=== PATIENT | female | born 1955 | race Caucasian/White ===

== ENCOUNTER → 2017-02-16 | Outpatient (CLI) | payer OTHER ==
[~2017-02-16] MED LIST: CYMB60CA; GLUCTAB; LEVO.075; ROPI1TAB72
[2017-02-16 13:02] LABS: AUTOMATED NEUTROPHIL # 4.1 TH/MM3 (1.8-7.7); BASOPHIL % 0.3 % (0.0-2.0); EOSINOPHIL # 0.1 TH/MM3 (0-0.4); EOSINOPHIL % 1.6 % (0.0-4.0); HEMATOCRIT 41.3 % (35.0-46.0); HEMO FLAGS DIFF FINAL; LYMPH % 33.1 % (9.0-44.0); LYMPHOCYTE # 2.4 TH/MM3 (1.0-4.8); MEAN CELL VOLUME 87.1 FL (80.0-100.0); MEAN CORPUSCULAR HGB CONC 33.3 % (32.0-36.0); PLATELET COUNT 212 TH/MM3 (150-450); RED BLOOD COUNT 4.74 MIL/MM3 (4.00-5.30); RED CELL DISTRIBUTION WIDTH 13.9 % (11.6-17.2); WHITE BLOOD COUNT 7.1 TH/MM3 (4.0-11.0)
[2017-02-16 13:34] LABS: ALT (GPT) 179 U/L (10-53); ANION GAP 8 MEQ/L (5-15); AST (GOT) 60 U/L (15-37); BICARBONATE 25.8 MEQ/L (21.0-32.0); BLOOD UREA NITROGEN 17 MG/DL (7-18); CHLORIDE 104 MEQ/L (98-107); GLOMERULAR FILTRATION RATE 84 ML/MIN (>89); POTASSIUM 3.8 MEQ/L (3.5-5.1); SODIUM (NA) 138 MEQ/L (136-145)
[2017-02-16 13:42] LABS: ALKALINE PHOSPHATASE 84 U/L (45-117); FREE T4 1.25 NG/DL (0.76-1.46); HDL CHOLESTEROL 62.6 MG/DL (40.0-60.0); LDL CHOLESTEROL 73 MG/DL (0-99); TOTAL BILIRUBIN ADULT 0.4 MG/DL (0.2-1.0)
== END ==
LOC: ELAB 11:01
PROVIDERS: ATTEND Family Medicine Adolescent Medicine
DX: E03.9 Hypothyroidism, unspecified (principal); E78.4 Other hyperlipidemia; I12.9 Hypertensive chronic kidney disease with stage 1 through stage 4 chronic kidney disease, or unspecified chronic kidney disease; N18.9 Chronic kidney disease, unspecified; E11.22 Type 2 diabetes mellitus with diabetic chronic kidney disease
CPT/HCPCS: 36415; 80050; 80053; 80061; 84439; 84443; 85025

== ENCOUNTER → 2017-11-10 | Outpatient (CLI) | payer OTHER ==
[2017-11-10 12:14] LABS: ALBUMIN 3.7 GM/DL (3.4-5.0); AST (GOT) 35 U/L (15-37); BICARBONATE 28.4 MEQ/L (21.0-32.0); BLOOD UREA NITROGEN 21 MG/DL (7-18); CALCIUM 9.6 MG/DL (8.5-10.1); CHLORIDE 100 MEQ/L (98-107); CHOLESTEROL 161 MG/DL (120-200); CREATININE 0.95 MG/DL (0.50-1.00); GLOMERULAR FILTRATION RATE 60 ML/MIN (>89); GLUCOSE,FASTING 157 MG/DL (74-99); SODIUM (NA) 140 MEQ/L (136-145)
[2017-11-10 12:24] LABS: ALKALINE PHOSPHATASE 89 U/L (45-117); ALT (GPT) 88 U/L (10-53); CHOLESTEROL/ HDL RATIO 2.87 RATIO; DIRECT BILIRUBIN ADULT 0.1 MG/DL (0.0-0.2); FREE T4 1.21 NG/DL (0.76-1.46); LDL CHOLESTEROL 75 MG/DL (0-99); TOTAL BILIRUBIN ADULT 0.5 MG/DL (0.2-1.0); TRIGLYCERIDES 149 MG/DL (42-150)
[2017-11-10 19:30] LABS: HEMOGLOBIN A1C 10.4 % (4.3-6.0)
== END ==
LOC: ELAB 10:52
PROVIDERS: ATTEND Family Medicine Adolescent Medicine
DX: E78.5 Hyperlipidemia, unspecified (principal); E11.65 Type 2 diabetes mellitus with hyperglycemia; E03.9 Hypothyroidism, unspecified; Z79.899 Other long term (current) drug therapy
CPT/HCPCS: 36415; 80053; 80061; 82043; 82248; 83036; 84439; 84443

== ENCOUNTER 2018-04-18 18:19 | Inpatient (IN) ==
--- NOTE | 2018-04-18 19:45 | ED ---
HPI General Chief Complaint: Neuro Symptoms/Deficit Stated Complaint: Patient states poss neuro Time Seen by Provider: 04/18/18 18:55 Source: patient Mode of arrival: ambulatory Limitations: no limitations History of Present Illness HPI Narrative: 62-year-old female that presents to the ED for evaluation of per patient "possible TIA ". Patient states that symptoms started since yesterday. Last night patient had an episode of diaphoresis and not feeling well. Per patient his episode went away and she was told by a friend to take an aspirin. She was also told to go to the ER but she declined and did not go to get checked. Patient today around 10:00 she noted that she had paralysis of the right side of her face. Per patient mainly to the mouth into the cheek. She states that she cannot use a straw. She also states that she feels that she is slurring her speech. She denies any visual problems but states that yesterday when she had the episode of diaphoresis she did had loss of vision but it went away. Per patient she had an episode today of less than 10 minutes where she had numbness to the right side of her hand. Per patient she has no weakness on the upper or lower extremities. She denies any back pain. No neck pain. No head trauma. No history of CVA or TIA. She does have a history of high blood pressure, cholesterol, diabetes. Has not taken anything for this. Denies any urinary or bowel movement issues. Related Data Home Medications Medication Instructions Recorded Confirmed dapagliflozin [Farxiga] 10 mg PO DAILY 04/18/18 04/18/18 glimepiride 2 mg PO QAM 04/18/18 04/18/18 liraglutide [Victoza 2-Travis] 1.8 mg SUBCUT DAILY 04/18/18 04/18/18 lisinopril-hydrochlorothiazide 1 tab PO DAILY 04/18/18 04/18/18 metformin 1,000 mg PO BID 04/18/18 04/18/18 omeprazole 40 mg PO DAILY 04/18/18 04/18/18 pioglitazone 30 mg PO DAILY 04/18/18 04/18/18 pravastatin 10 mg PO DAILY 04/18/18 04/18/18 ropinirole 1 mg PO TID 04/18/18 04/18/18 Allergies Allergy/AdvReac Type Severity Reaction Status Date / Time codeine Allergy Unknown Nausea/Vomi Unverified 01/26/17 16:10 ting Review of Systems ROS: all other systems reviewed are negative [facility] History History Provided By: Patient and Family Member Medical History Medical History Diabetes (Acute) GERD (gastroesophageal reflux disease) (Acute) High cholesterol (Acute) Hypertension (Acute) Restless leg (Acute) Social History Social History Substance History: No History of Abuse Smoking Status: Former smoker How Often Do You Have a Drink Containing Alcohol: Never Recent Travel in [facility] within the Last 8 Weeks: No Recent Out of Country Travel within the Last 8 Weeks: No Exam Narrative Exam Narrative: GENERAL: Well appearing SKIN: Focused skin assessment warm/dry. HEAD: Atraumatic. Normocephalic. EYES: Pupils equal and round 4 mm reactive to light and accommodation.. No scleral icterus. No injection or drainage. EOM intact bilaterally. ENT: No nasal bleeding or discharge. Mucous membranes pink and moist. Tongue is midline. No uvula deviation. NECK: Trachea midline. No JVD. CARDIOVASCULAR: Regular rate and rhythm. No murmur appreciated. RESPIRATORY: No accessory muscle use. Clear to auscultation. Breath sounds equal bilaterally. GASTROINTESTINAL: Abdomen soft, non-tender, nondistended. Hepatic and splenic margins not palpable. MUSCULOSKELETAL: No obvious deformities. No clubbing. No cyanosis. No edema. Full range of motion of the upper and lower extremities bilaterally. 2+ pulses bilaterally. NEUROLOGICAL: Awake and alert. No obvious cranial nerve deficits with exception of right cheek in mild paralysis noted.. Motor grossly within normal limits. Slight slurred speech. PSYCHIATRIC: Appropriate mood and affect; insight and judgment normal. Course Initial Documented Vital Signs Temperature 97.6 F 04/18/18 18:35 Pulse Rate 111 H 04/18/18 18:35 Respiratory Rate 16 04/18/18 18:35 Blood Pressure 148/67 H 04/18/18 18:35 Pulse Oximetry 96 04/18/18 18:35 Last Documented Vital Signs Temperature 98.1 F 04/18/18 20:31 Pulse Rate 105 H 04/18/18 20:48 Respiratory Rate 19 04/18/18 19:28 Blood Pressure 166/98 H 04/18/18 20:31 Pulse Oximetry 98 04/18/18 20:31 NIH Stroke Scale NIH Stroke Scale Level of Consciousness: 0-Alert Orientation Questions: 0-Answers both correct Responds to Commands: 0-Both tasks correct Gaze Eye Movement: 0-Horizontal movement WNL Visual Kendrick: 0-No visual field defect Facial Movement: 1-Minor facial palsy Motor Functions Arm LEFT: 0-No drift Motor Functions Arm RIGHT: 0-No drift Motor Functions Leg LEFT: 0-No drift Motor Functions Leg RIGHT: 0-No drift Limb Ataxia: 0-No ataxia Sensory Loss: 0-No sensory loss Best Language: 1-Mild aphasia Articulation: 0-Normal Extinction or Inattention Sensory: 0-Absent Total: 2 Medical Decision Making ALONZO Attestation ALONZO supervised visit: Yes Attestation: I, Dr. Heredia, have reviewed the advance practice practitioner's documentation and am in agreement, met with the patient face to face, made the diagnosis, and the medical decision making was done by me. See his note for further details. This is a 62-year-old female with history of diabetes, hypercholesteremia, hypertension, former smoker, here for evaluation of right-sided facial droop and slurred speech. Patient noticed the symptoms at around 10:00 to 11:00 AM today. She has a slight right-sided headache as well. She states that earlier today when the symptoms started she noticed some weakness and numbness in her right arm and leg which have resolved. She states that yesterday she had episodes where she became diaphoretic and had a discomfort in her neck. Currently no chest pain. No known history of cardiac disease. I discussed the case with on-call neurologist Dr. Prasad who recommends basic CVA workup in the ED which include CT head without contrast and labs. If the CT head is negative , the patient will be started on aspirin and admitted for further CVA workup. Patient is well outside of the window for TPA, and her symptoms are very mild consisting of only right facial droop and slight slurred speech, precluding her from having interventional procedure. On exam the patient is awake and alert with a GCS of 15. No pronator drift. Normal [id number] test bilaterally. Normal strength in all 4 extremities. She has a slight right facial droop. Visual kendrick are intact. MDM Narrative Medical decision making narrative: 62-year-old female that presents to the ED for evaluation of possible CVA. Case was discussed with my attending Dr. Heredia who was made aware of findings and when I evaluated the patient himself. He agrees no stroke alert to be called. At this time CT and labs will be ordered. My attending spoke with Dr. Prasad who initially wanted CTAs done stat and then call back and decided that we can cancel this. Labs and imaging were essentially unremarkable. My attending Dr. Heredia spoke with Dr. Prasad about the results and agrees with admission for further evaluation and treatment. Case discussed with Dr. Carmichael who agrees to admission. My attending spoke with the patient who agrees with admission. Medical Screen Exam Complete: Yes Emergency Medical Condition: Yes Differential Diagnosis Differential Diagnosis: CVA versus ACS versus TIA versus neuropathy versus radiculopathy Medical Records Medical records reviewed: Yes I reviewed the patient's medical records. Lab Data Lab results reviewed: Yes I reviewed the patient's lab results. Result diagrams: 04/18/18 19:35 04/18/18 19:35 Lab Results 04/18/18 04/18/18 04/18/18 Range/Units 19:35 19:35 19:35 WBC 6.9 (4.0-11.0) th/mm3 RBC 5.00 (4.00-5.30) mil/mm3 Hgb 13.9 (11.6-15.3) gm/dL POC Hgb (Calc) (11.6-15.3) g/dL Hct 42.7 (35.0-46.0) % POC Hct (35-46.0) % MCV 85.4 (80.0-100.0) fL MCH 27.8 (27.0-34.0) pg MCHC 32.6 (32.0-36.0) % RDW 14.3 (11.6-17.2) % Plt Count 232 (150-450) th/mm3 MPV 8.1 (7.0-11.0) fL Neut % (Auto) 59.7 (16.0-70.0) % Lymph % (Auto) 30.8 (9.0-44.0) % Davie % (Auto) 8.0 (0.0-8.0) % Eos % (Auto) 1.1 (0.0-4.0) % Baso % (Auto) 0.4 (0.0-2.0) % Neut # (Auto) 4.1 (1.8-7.7) th/mm3 Lymph # (Auto) 2.1 (1.0-4.8) th/mm3 Davie # (Auto) 0.6 (0.0-0.9) th/mm3 Eos # (Auto) 0.1 (0.0-0.4) th/mm3 Baso # (Auto) 0.0 (0.0-0.2) th/mm3 WBC Differential . Differential Comment Auto diff final PT 9.9 (9.8-11.6) sec INR 1.0 Ratio APTT 25.4 (23.4-31.7) sec POC Sodium (137-144) mmol/L Sodium 137 (136-145) meq/L POC Potassium (3.6-5.0) mmol/L Potassium 4.1 (3.5-5.1) meq/L POC Chloride (102-111) mmol/L Chloride 99 (98-107) meq/L Carbon Dioxide 30.5 (21.0-32.0) meq/L Anion Gap 8 (5-15) meq/L POC BUN (5-21) mg/dL BUN 17 (7-18) mg/dL Creatinine 1.01 H (0.50-1.00) mg/dL POC Creatinine (0.6-1.3) mg/dL Estimated GFR 56 L (>89) mL/min POC Glucose (68-110) mg/dL Random Glucose 261 H (74-106) mg/dL Calcium 8.9 (8.5-10.1) mg/dL Total Bilirubin 0.4 (0.2-1.0) mg/dL AST 41 H (15-37) U/L ALT 82 H (10-53) U/L Alkaline Phosphatase 87 (45-117) U/L Total Creatine Kinase 76 (26-192) U/L Troponin I Less than 0.02 L (0.02-0.05) ng/mL Total Protein 8.1 (6.4-8.2) g/dL Albumin 3.7 (3.4-5.0) g/dL 04/18/18 Range/Units 19:35 WBC (4.0-11.0) th/mm3 RBC (4.00-5.30) mil/mm3 Hgb (11.6-15.3) gm/dL POC Hgb (Calc) 14.6 (11.6-15.3) g/dL Hct (35.0-46.0) % POC Hct 43.0 (35-46.0) % MCV (80.0-100.0) fL MCH (27.0-34.0) pg MCHC (32.0-36.0) % RDW (11.6-17.2) % Plt Count (150-450) th/mm3 MPV (7.0-11.0) fL Neut % (Auto) (16.0-70.0) % Lymph % (Auto) (9.0-44.0) % Davie % (Auto) (0.0-8.0) % Eos % (Auto) (0.0-4.0) % Baso % (Auto) (0.0-2.0) % Neut # (Auto) (1.8-7.7) th/mm3 Lymph # (Auto) (1.0-4.8) th/mm3 Davie # (Auto) (0.0-0.9) th/mm3 Eos # (Auto) (0.0-0.4) th/mm3 Baso # (Auto) (0.0-0.2) th/mm3 WBC Differential Differential Comment PT (9.8-11.6) sec INR Ratio APTT (23.4-31.7) sec POC Sodium 138 (137-144) mmol/L Sodium (136-145) meq/L POC Potassium 4.2 (3.6-5.0) mmol/L Potassium (3.5-5.1) meq/L POC Chloride 96 L (102-111) mmol/L Chloride (98-107) meq/L Carbon Dioxide (21.0-32.0) meq/L Anion Gap (5-15) meq/L POC BUN 21 (5-21) mg/dL BUN (7-18) mg/dL Creatinine (0.50-1.00) mg/dL POC Creatinine 0.9 (0.6-1.3) mg/dL Estimated GFR (>89) mL/min POC Glucose 265 H (68-110) mg/dL Random Glucose (74-106) mg/dL Calcium (8.5-10.1) mg/dL Total Bilirubin (0.2-1.0) mg/dL AST (15-37) U/L ALT (10-53) U/L Alkaline Phosphatase (45-117) U/L Total Creatine Kinase (26-192) U/L Troponin I (0.02-0.05) ng/mL Total Protein (6.4-8.2) g/dL Albumin (3.4-5.0) g/dL Imaging Data Attestation: I personally reviewed and interpreted this imaging study as follows : Radiologist's impression: Head CT 04/18/18 19:03 CONCLUSION: No acute intracranial abnormality demonstrated. Mild, chronic- appearing white matter changes. . Discharge Plan Discharge Disposition Patient Disposition: 30 Still Patient Discharge Condition Condition: Stable Discharge Details Diagnosis: CVA (cerebral vascular accident) Physicians Team ED Provider: Javier Heredia ED Midlevel Provider: Alfredo Marr Primary Care Provider: Wanda Ma Attending Provider: Constantino Carmichael Other Providers: Chai Keller ; Deirdre Langley Status ED Status: Admitted Patient
[2018-04-18 19:49] LABS: Baso % (Auto) 0.4 % (0.0-2.0); Eos # (Auto) 0.1 th/mm3 (0.0-0.4); Eos % (Auto) 1.1 % (0.0-4.0); Hematocrit 42.7 % (35.0-46.0); Hemoglobin 13.9 gm/dL (11.6-15.3); Lymph # (Auto) 2.1 th/mm3 (1.0-4.8); Lymph % (Auto) 30.8 % (9.0-44.0); Mean Corpuscular HGB Conc 32.6 % (32.0-36.0); Mean Corpuscular Hemoglobin 27.8 pg (27.0-34.0); Mean Corpuscular Volume 85.4 fL (80.0-100.0); Mean Platelet Volume 8.1 fL (7.0-11.0); Mono # (Auto) 0.6 th/mm3 (0.0-0.9); Neut # (Auto) 4.1 th/mm3 (1.8-7.7); Neut % (Auto) 59.7 % (16.0-70.0); Platelet Count 232 th/mm3 (150-450); Red Cell Distribution Width 14.3 % (11.6-17.2); White Blood Count 6.9 th/mm3 (4.0-11.0)
[2018-04-18 19:59] LABS: Activated Partial Thrombo Time 25.4 sec (23.4-31.7); Prothrombin Time 9.9 sec (9.8-11.6)
[2018-04-18 20:02] LABS: Alanine Aminotransferase 82 U/L (10-53)
[2018-04-18 20:07] LABS: Albumin 3.7 g/dL (3.4-5.0); Alkaline Phosphatase 87 U/L (45-117); Anion Gap 8 meq/L (5-15); Aspartate Aminotransferase 41 U/L (15-37); Blood Urea Nitrogen 17 mg/dL (7-18); Calcium 8.9 mg/dL (8.5-10.1); Carbon Dioxide 30.5 meq/L (21.0-32.0); Chloride 99 meq/L (98-107); Glomerular Filtration Rate 56 mL/min (>89); Glucose,Random 261 mg/dL (74-106); Potassium 4.1 meq/L (3.5-5.1); Sodium 137 meq/L (136-145); Total Protein 8.1 g/dL (6.4-8.2)
[2018-04-18 20:10] LABS: Creatine Kinase 76 U/L (26-192)
--- NOTE | 2018-04-18 20:29 | CT ---
EXAM DATE: 04/18/2018 8:23 PM EST AGE/SEX: 62 years / Female INDICATIONS: Right sided facial numbness. Slight right facial droop. CLINICAL DATA: This is the patient's initial encounter. Patient reports that signs and symptoms have been present for 1 day and indicates a pain score of 0/10. MEDICAL/SURGICAL HISTORY: None. None. RADIATION DOSE: 34.02 CTDI (mGy) COMPARISON: No prior exams available for comparison. TECHNIQUE: CT of the head without contrast. Using automated exposure control and adjustment of the mA and/or kV according to patient size, radiation dose was kept as low as reasonably achievable to ob tain optimal diagnostic quality images. DICOM format image data is available electronically for revi ew and comparison. FINDINGS: Cerebrum: The ventricles are normal for age. No evidence of midline shift, mass lesion, hemorrhage or acute infarction. No extraaxial fluid collections are seen. Mild and symmetric appearing low-atte nuation seen in the periventricular white matter of both cerebral hemispheres. No perceptible acute i schemic event. Posterior Fossa: The cerebellum and brainstem are intact. The 4th ventricle is midline. The cerebe llopontine angle is unremarkable. Extracranial: The visualized portion of the orbits is intact. Skull: The calvaria is intact. No evidence of skull fracture. CONCLUSION: No acute intracranial abnormality demonstrated. Mild, chronic-appearing white matter hartley ges. . Electronically signed by: Gregorio Rosado MD 04/18/2018 8:27 PM EST
[2018-04-18] MEDS ORDERED: Dextrose 50% in Water 50 ML Vial IV.PUSH PRN (21:05)
[2018-04-18] MEDS: Enoxaparin Inj 40 MG/0.4 ML Syringe SQ SCH (22:00)
--- NOTE | 2018-04-19 01:08 | P.HPIM ---
History of Present Illness Primary Care Physician: Wanda Ma DO History of Present Illness: 62-year-old female with a history of hypertension, hyperlipidemia, diabetes who presents with right face numbness and weakness, as well as transient right arm weakness. Patient reports experiencing an episode of diaphoresis yesterday, right face numbness without chest pain yesterday, took an aspirin but did not come to ER. Today she again experienced right face numbness, weakness, as well as transient right arm weakness. Her right arm weakness has resolved, weakness in right face has improved, however she still has vague paresthesia type sensation in the right face. He denies any chest pain, shortness of breath, nausea or vomiting. Inpatient Certification: I certify that the inpatient services were ordered in accordance with Medicare regulations governing the order. This includes certification that hospital inpatient services are reasonable and necessary and in the case of services not specified as inpatient-only under 42 CFR 419.22(n), that they are appropriately provided as inpatient services in accordance to with the 2-midnight benchmark under 43 CFR 412.3(e) Estimated Total Length of Stay (Days): 3 Plans for Post Hospital Care: Not yet determined Review of Systems All other systems reviewed negative except as stated in HPI PMFSH - History History Provided By: Patient, Family Member - Medical History Medical History: Medical History (Last Updated 04/19/18 @ 01:03 by Constantino Carmichael MD) Diabetes GERD (gastroesophageal reflux disease) High cholesterol Hypertension Restless leg Rotator cuff arthropathy of left shoulder - Surgical History Surgical History: Surgical History (Last Updated 04/19/18 @ 01:03 by Constantino Carmichael MD) History of arthroplasty of left shoulder History of carpal tunnel surgery of left wrist History of left knee replacement S/P arthroscopy of left shoulder - Family History Family History: Family History (Last Updated 04/19/18 @ 01:03 by Constantino Carmichael MD) Father Diabetes mellitus Mother Leukemia - Social History I have reviewed the patient's Social History: Yes - Tobacco History Tobacco Use In Past 30 Days: No Smoking Status: Former smoker - Alcohol History How Often Do You Have a Drink Containing Alcohol: Never - Substance Use History Substance History: No History of Abuse - Travel History Recent Travel in the [place] Within the Last 8 Weeks: No Recent Travel Out of the Country Within the Last 8 Weeks: No - Immunization History Tetanus Immunization: >5 Years Medications and Allergies Active Medications: Active Medications Aspirin (Aspirin Chew) 81 mg PO DAILY [facility] Dextrose (D50w Vial) 50 ml IV.PUSH UNSCH PRN PRN Reason: PER HYPOGLYCEMIA PROTOCOL Enalaprilat (Vasotec Inj) 1.25 mg IV.PUSH Q4H PRN PRN Reason: For SBP > 220 or DBP > 120 Enoxaparin Sodium (Lovenox Inj) 40 mg SQ Q24H THONY Last Admin: 04/18/18 22:00 Dose: 40 mg Glucagon (Glucagon Inj) 1 mg OTHER UNSCH PRN PRN Reason: for Hypoglycemia Protocol Insulin Aspart (Novolog Insulin Correctional Sugar Inj) 0 unit SQ ACHS THONY; Protocol Sodium Chloride (Ns Flush) 2 ml IV.FLUSH PRN PRN PRN Reason: FLUSH AFTER USING IV ACCESS Sodium Chloride (Ns Flush) 2 ml IV.FLUSH BID THONY Allergies Allergy/AdvReac Type Severity Reaction Status Date / Time codeine Allergy Unknown Nausea/Vomi Unverified 01/26/17 16:10 ting Home Medications Medication Instructions Recorded Confirmed Type dapagliflozin [Farxiga] 10 mg PO DAILY 04/18/18 04/18/18 History glimepiride 2 mg PO QAM 04/18/18 04/18/18 History liraglutide [Victoza 2-Travis] 1.8 mg SUBCUT DAILY 04/18/18 04/18/18 History lisinopril-hydrochlorothiazide 1 tab PO DAILY 04/18/18 04/18/18 History metformin 1,000 mg PO BID 04/18/18 04/18/18 History omeprazole 40 mg PO DAILY 04/18/18 04/18/18 History pioglitazone 30 mg PO DAILY 04/18/18 04/18/18 History pravastatin 10 mg PO DAILY 04/18/18 04/18/18 History ropinirole 1 mg PO TID 04/18/18 04/18/18 History Exam Vital signs: Vital Signs 04/18/18 18:35 04/18/18 19:28 04/18/18 20:31 Temperature 97.6 F 98.1 F Pulse Rate 111 H 106 H 95 H Respiratory Rate 16 19 Blood Pressure 148/67 H 144/76 H 166/98 H Pulse Oximetry 96 96 98 04/18/18 20:48 04/19/18 00:00 Temperature 98.2 F Pulse Rate 105 H 86 Respiratory Rate 16 Blood Pressure 117/60 Pulse Oximetry 94 L Intake & Output 04/18/18 04/18/18 04/19/18 06:59 18:59 06:59 Weight 75.75 kg Narrative: GENERAL: Patient sitting up in bed. Appears comfortable. Alert and oriented x3. SKIN: Warm and dry. HEAD: Atraumatic. Normocephalic. EYES: Pupils equal and round. No scleral icterus. No injection or drainage. ENT: No nasal bleeding or discharge. Mucous membranes pink and moist. NECK: Trachea midline. No JVD. CARDIOVASCULAR: Regular rate and rhythm. RESPIRATORY: No accessory muscle use. Clear to auscultation. Breath sounds equal bilaterally. GASTROINTESTINAL: Abdomen soft, non-tender, nondistended. Hepatic and splenic margins not palpable. MUSCULOSKELETAL: Extremities without clubbing, cyanosis, or edema. No obvious deformities. NEUROLOGICAL: Awake and alert. No obvious cranial nerve deficits. Motor grossly within normal limits. Five out of 5 muscle strength in the arms and legs. Normal speech. Does not have slurred speech. PSYCHIATRIC: Appropriate mood and affect; insight and judgment normal. Results - Labs CBC & Chem 7: 04/18/18 19:35 04/18/18 19:35 Labs: Short CBC 04/18/18 Range/Units 19:35 WBC 6.9 (4.0-11.0) th/mm3 Hgb 13.9 (11.6-15.3) gm/dL Hct 42.7 (35.0-46.0) % Plt Count 232 (150-450) th/mm3 BMP 04/18/18 19:35 Sodium 137 Potassium 4.1 Chloride 99 Carbon Dioxide 30.5 BUN 17 Creatinine 1.01 H Calcium 8.9 Cardiac Enzymes 04/18/18 Range/Units 19:35 Total Creatine Kinase 76 (26-192) U/L Troponin I Less than 0.02 L (0.02-0.05) ng/mL Liver Function 04/18/18 Range/Units 19:35 Total Bilirubin 0.4 (0.2-1.0) mg/dL AST 41 H (15-37) U/L ALT 82 H (10-53) U/L Alkaline Phosphatase 87 (45-117) U/L Albumin 3.7 (3.4-5.0) g/dL - Imaging Impressions Head CT 04/18/18 19:03 CONCLUSION: No acute intracranial abnormality demonstrated. Mild, chronic- appearing white matter changes. . Caprini VTE Risk Assessment Caprini VTE Risk Assessment: Moderate/High Risk (score >= 2) Caprini Risk Assessment Model: Point Value = 1 Point Value = 2 Point Value = 3 Point Value = 5 Age 41-60 Minor surgery BMI > 25 kg/m2 Swollen legs Varicose veins or History of unexplained or recurrent spontaneous Oral contraceptives or hormone replacement Sepsis (< 1 month) Serious lung disease, including pneumonia (< 1 month) Abnormal pulmonary function Acute myocardial infarction Congestive heart failure (< 1 month) History of inflammatory bowel disease Medical patient at bed rest Age 61-74 Arthroscopic surgery Major open surgery (> 45 min) Laparoscopic surgery (> 45 min) Malignancy Confined to bed (> 72 hours) Immobilizing plaster cast Central venous access Age >= 75 History of VTE Family history of VTE Factor V Leiden Prothrombin [id number] Lupus anticoagulant Anticardiolipin antibodies Elevated serum homocysteine Heparin-induced thrombocytopenia Other congenital or acquired thrombophilia Stroke (< 1 month) Elective arthroplasty Hip, pelvis, or leg fracture Acute spinal cord injury (< 1 month) Prophylaxis Regimen: Total Risk Factor Score Risk Level Prophylaxis Regimen 0-1 Low Early ambulation 2 Moderate Order ONE of the following: *Sequential Compression Device (SCD) *Heparin 5000 units SQ BID 3-4 Higher Order ONE of the following medications: *Heparin 5000 units SQ TID *Enoxaparin/Lovenox 40 mg SQ daily (WT < 150 kg, CrCl > 30 mL/min) *Enoxaparin/Lovenox 30 mg SQ daily (WT < 150 kg, CrCl > 10-29 mL/min) *Enoxaparin/Lovenox 30 mg SQ BID (WT < 150 kg, CrCl > 30 mL/min) AND/OR *Sequential Compression Device (SCD) 5 or more Highest Order ONE of the following medications: *Heparin 5000 units SQ TID (Preferred with Epidurals) *Enoxaparin/Lovenox 40 mg SQ daily (WT < 150 kg, CrCl > 30 mL/min) *Enoxaparin/Lovenox 30 mg SQ daily (WT < 150 kg, CrCl > 10-29 mL/min) *Enoxaparin/Lovenox 30 mg SQ BID (WT < 150 kg, CrCl > 30 mL/min) AND *Sequential Compression Device (SCD) Assessment and Plan - Plan //Acute onset right facial numbness/weakness Appears to be resolved currently. -CT with no acute findings -We will check MRI, carotid ultrasound, echocardiogram, telemetry for arrhythmia -Permissive hypertension. Neurology consult pending. //Diabetes mellitus. Glucose elevated in the 260s on admission. Will check A1c. Diabetic diet when passes bedside swallow evaluation. And insulin sliding scale. //GERD. Chronic. Continue home medications //Hyperlipidemia. Chronic. Continue home medication. //History of hypertension. Chronic. Permissive hypertension for now as above. //Restless legs. Chronic. Continue home medications. Discussed Condition With: Patient, nurse, ED physician, at bedside.
--- NOTE | 2018-04-19 05:19 | ECG ---
Date Performed: 04/18/2018 Time Performed: 18:42:35 PTAGE: 62 years EKG: SINUS TACHYCARDIA POSSIBLE LEFT ATRIAL ENLARGEMENT LOW QRS VOLTAGE IN PRECORDIAL LEADS POSS IBLE ANTERIOR MYOCARDIAL INFARCTION ABNORMAL RHYTHM ECG NO PREVIOUS TRACING DOCTOR: Dayo Arora Interpretating Date/Time 04/19/2018 05:18:02
[2018-04-19 08:01] LABS: Chol/HDL Ratio 3.5 Ratio; HDL Cholesterol 47.9 mg/dL (40.0-60.0)
--- NOTE | 2018-04-19 08:02 | US ---
EXAM DATE: 04/19/2018 7:56 AM EST AGE/SEX: 62 years / Female INDICATIONS: Cerebrovascular accident. CLINICAL DATA: This is the patient's initial encounter. Patient reports that signs and symptoms have been present for 2 days and indicates a pain score of 1/10. MEDICAL/SURGICAL HISTORY: . Diabetes. GERD. High cholesterol. HTN. . Rotator cuff left. C arpal tunnel left wrist. Left knee replacement. COMPARISON: No prior exams available for comparison. VELOCITY PARAMETERS: ICA/CCA Ratio: Right 0.9 , Left 1.1 ICA: Right 58 cm/sec, Left 90 cm/sec CCA: Right 62 cm/sec, Left 82 cm/sec ECA: Right 59 cm/sec, Left 46 cm/sec Vertebral: Right 46 cm/sec antegrade, Left 59 cm/sec antegrade FINDINGS: Right Carotid: No significant plaque is visualized.The waveforms are within normal limits. Left Carotid: No significant plaque is visualized. The waveforms are within normal limits. Other: None. CONCLUSION: No evidence for hemodynamically significant stenosis. Not mentioned above is a small lymp h node in the right mid neck measures 1.5 cm in size nonspecific most likely benign. Electronically signed by: Liset Gould MD 04/19/2018 8:01 AM EST
--- NOTE | 2018-04-19 08:38 | MR ---
EXAM DATE: 04/19/2018 8:32 AM EST AGE/SEX: 62 years / Female INDICATIONS: Slurred speech. Right sided facial droop. CLINICAL DATA: This is the patient's initial encounter. Patient reports that signs and symptoms have been present for 2 days and indicates a pain score of 0/10. MEDICAL/SURGICAL HISTORY: Hypertension. Diabetes mellitus type II. Hysterectomy. Rotator cuff , right. Knee replacement. COMPARISON: [facility] [place], CT HEAD W/O CONTRAST, 04/18/2018. . TECHNIQUE: Multiplanar, multisequence examination of the brain was performed without contrast. FINDINGS: There is no evidence for intracranial hemorrhage, mass effect, mass lesions, edema, or ext ra-axial fluid collections. There are no signs of acute infarction for technique. The diffusion por tion is unremarkable. Slight degree of brain atrophy is seen. Slight periventricular white matter josee nges are seen nonspecific mostly consistent with chronic small vessel ischemic changes. CONCLUSION: Chronic small vessel ischemic and atrophic changes. Electronically signed by: Liset Gould MD 04/19/2018 8:36 AM EST
--- NOTE | 2018-04-19 09:00 | P.CONNEU ---
History of Present Illness Service: Neurology Primary Care Provider: Wanda Ma DO Chief Complaint: Stroke History of Present Illness: 60-year-old female admitted for stroke evaluation. Right face arm leg numbness mild weakness slurred speech improved but persistent. Does not take any antiplatelet agent no history of TIA or stroke. Denies any history of cardiac arrhythmia lupus hypercoagulable state or A. fib. No tobacco use States her brother had a stroke also had multiple myeloma. She stays home and takes care of her who is disabled Review of Systems All other systems reviewed negative except as stated in HPI [facility] - History History Provided By: Patient, Family Member - Medical History Medical History: Medical History (Last Updated 04/19/18 @ 01:03 by Constantino Carmichael MD) Diabetes GERD (gastroesophageal reflux disease) High cholesterol Hypertension Restless leg Rotator cuff arthropathy of left shoulder - Surgical History Surgical History: Surgical History (Last Updated 04/19/18 @ 01:03 by Constantino Carmichael MD) History of arthroplasty of left shoulder History of carpal tunnel surgery of left wrist History of left knee replacement S/P arthroscopy of left shoulder - Family History Family History: Family History (Last Updated 04/19/18 @ 01:03 by Constantino Carmichael MD) Father Diabetes mellitus Mother Leukemia - Tobacco History Second Hand Smoke Exposure: No Tobacco Use In Past 30 Days: No Smoking Status: Former smoker - Alcohol History How Often Do You Have a Drink Containing Alcohol: Never - Substance Use History Substance History: No History of Abuse - Travel History Recent Travel in the [place] Within the Last 8 Weeks: No Recent Travel Out of the Country Within the Last 8 Weeks: No - Immunization History Tetanus Immunization: >5 Years Medications and Allergies Active Medications: Active Medications Aspirin (Aspirin Chew) 81 mg PO DAILY [facility] Dextrose (D50w Vial) 50 ml IV.PUSH UNSCH PRN PRN Reason: PER HYPOGLYCEMIA PROTOCOL Enalaprilat (Vasotec Inj) 1.25 mg IV.PUSH Q4H PRN PRN Reason: For SBP > 220 or DBP > 120 Enoxaparin Sodium (Lovenox Inj) 40 mg SQ Q24H [facility] Last Admin: 04/18/18 22:00 Dose: 40 mg Glucagon (Glucagon Inj) 1 mg OTHER UNSCH PRN PRN Reason: for Hypoglycemia Protocol Insulin Aspart (Novolog Insulin Correctional Sugar Inj) 0 unit SQ ACHS [facility]; Protocol Pantoprazole Sodium (Protonix) 40 mg PO DAILY [facility] Pravastatin Sodium (Pravachol) 10 mg PO DAILY [facility] Ropinirole HCl (Requip) 1 mg PO TID [facility] Sodium Chloride (Ns Flush) 2 ml IV.FLUSH PRN PRN PRN Reason: FLUSH AFTER USING IV ACCESS Sodium Chloride (Ns Flush) 2 ml IV.FLUSH BID [facility] Allergies Allergy/AdvReac Type Severity Reaction Status Date / Time codeine Allergy Unknown Nausea/Vomi Verified 04/19/18 07:17 ting Home Medications Medication Instructions Recorded Confirmed Type dapagliflozin [Farxiga] 10 mg PO DAILY 04/18/18 04/18/18 History glimepiride 2 mg PO QAM 04/18/18 04/18/18 History liraglutide [Victoza 2-Travis] 1.8 mg SUBCUT DAILY 04/18/18 04/18/18 History lisinopril-hydrochlorothiazide 1 tab PO DAILY 04/18/18 04/18/18 History metformin 1,000 mg PO BID 04/18/18 04/18/18 History omeprazole 40 mg PO DAILY 04/18/18 04/18/18 History pioglitazone 30 mg PO DAILY 04/18/18 04/18/18 History pravastatin 10 mg PO DAILY 04/18/18 04/18/18 History ropinirole 1 mg PO TID 04/18/18 04/18/18 History Exam Vital signs: Vital Signs 04/18/18 18:35 04/18/18 19:28 04/18/18 20:31 Temperature 97.6 F 98.1 F Pulse Rate 111 H 106 H 95 H Respiratory Rate 16 19 Blood Pressure 148/67 H 144/76 H 166/98 H Pulse Oximetry 96 96 98 04/18/18 20:48 04/18/18 22:30 04/19/18 00:00 Temperature 98.2 F Pulse Rate 105 H 86 Respiratory Rate 20 16 Blood Pressure 117/60 Pulse Oximetry 94 L 04/19/18 00:30 04/19/18 04:00 Temperature 98.3 F Pulse Rate 112 H 85 Respiratory Rate 16 Blood Pressure 129/72 Pulse Oximetry 98 95 Intake & Output 04/18/18 04/19/18 04/19/18 18:59 06:59 18:59 Weight 75.75 kg 74.8 kg Other: # Voids 1 Date of Last Bowel Movement 04/18/18 Weight On Admission 75.75 kg Narrative: GENERAL: in NAD, SKIN: Warm and dry. HEAD: Atraumatic. Normocephalic. EYES: Pupils equal and round. No scleral icterus. ENT: No nasal bleeding or discharge. Mucous membranes pink and moist. NECK: Trachea midline. No JVD. CARDIOVASCULAR: Regular rate and rhythm. RESPIRATORY: No accessory muscle use. GASTROINTESTINAL: Abdomen soft, non-tender, nondistended. MUSCULOSKELETAL: Extremities without clubbing, cyanosis, or edema. No obvious deformities. NEUROLOGICAL: Awake and alert. Oriented x3, slightly dysarthric speech, reduced right nasolabial fold asymmetric smile visual duckworth full, no pronator drift no dystaxia moving all extremities to gravity no agraphesthesia gait not assessed secondary to fall risk PSYCHIATRIC: Appropriate mood and affect; insight and judgment normal. - Constitutional no acute distress - Routine HEENT Exam Head: Present: normocephalic Results - Labs CBC & Chem 7: 04/18/18 19:35 04/18/18 19:35 Labs: Laboratory Results - last 24 hr 04/18/18 04/18/18 04/18/18 19:35 19:35 19:35 WBC 6.9 RBC 5.00 Hgb 13.9 POC Hgb (Calc) Hct 42.7 POC Hct MCV 85.4 MCH 27.8 MCHC 32.6 RDW 14.3 Plt Count 232 MPV 8.1 Neut % (Auto) 59.7 Lymph % (Auto) 30.8 Flagler % (Auto) 8.0 Eos % (Auto) 1.1 Baso % (Auto) 0.4 Neut # (Auto) 4.1 Lymph # (Auto) 2.1 [place] # (Auto) 0.6 Eos # (Auto) 0.1 Baso # (Auto) 0.0 WBC Differential . Differential Comment Auto diff final PT 9.9 INR 1.0 APTT 25.4 POC Sodium Sodium 137 POC Potassium Potassium 4.1 POC Chloride Chloride 99 Carbon Dioxide 30.5 Anion Gap 8 POC BUN BUN 17 Creatinine 1.01 H POC Creatinine Estimated GFR 56 L POC Glucose Random Glucose 261 H Calcium 8.9 Total Bilirubin 0.4 AST 41 H ALT 82 H Alkaline Phosphatase 87 Total Creatine Kinase 76 Troponin I Less than 0.02 L Total Protein 8.1 Albumin 3.7 Triglycerides Cholesterol LDL Cholesterol, Calc HDL Cholesterol Cholesterol/HDL Ratio 04/18/18 04/19/18 04/19/18 19:35 06:40 08:50 WBC RBC Hgb POC Hgb (Calc) 14.6 Hct POC Hct 43.0 MCV MCH MCHC RDW Plt Count MPV Neut % (Auto) Lymph % (Auto) Flagler % (Auto) Eos % (Auto) Baso % (Auto) Neut # (Auto) Lymph # (Auto) [place] # (Auto) Eos # (Auto) Baso # (Auto) WBC Differential Differential Comment PT INR APTT POC Sodium 138 Sodium POC Potassium 4.2 Potassium POC Chloride 96 L Chloride Carbon Dioxide Anion Gap POC BUN 21 BUN Creatinine POC Creatinine 0.9 Estimated GFR POC Glucose 265 H 212 H Random Glucose Calcium Total Bilirubin AST ALT Alkaline Phosphatase Total Creatine Kinase Troponin I Total Protein Albumin Triglycerides 293 H Cholesterol 168 LDL Cholesterol, Calc 62 HDL Cholesterol 47.9 Cholesterol/HDL Ratio 3.50 - Imaging Impressions Head CT 04/18/18 19:03 CONCLUSION: No acute intracranial abnormality demonstrated. Mild, chronic- appearing white matter changes. . Carotid Doppler Study 04/19/18 00:00 CONCLUSION: No evidence for hemodynamically significant stenosis. Not mentioned above is a small lymph node in the right mid neck measures 1.5 cm in size nonspecific most likely benign. Head MRI 04/19/18 07:03 CONCLUSION: Chronic small vessel ischemic and atrophic changes. Review/Management - Diagnosis (1) TIA (transient ischemic attack) Code(s): G45.9 - Transient cerebral ischemic attack, unspecified Status: Acute Current Visit: Yes (2) Hypertension Code(s): I10 - Essential (primary) hypertension Status: Acute Current Visit : Yes - Review/Management Plan: Probable resolving TIA, tiny infarct MRI brain scan reviewed no acute infarct noted low slightly reduced right nasolabial fold. Ramirez's palsy possibility however symptoms affecting the right arm and leg would make that less likely Recommendation Aspirin Blood pressure control Hematology evaluation to exclude hypercoagulable state in light of her brother having a stroke at a young age Cardiology evaluation exclude any valvular cardiac lesion Further follow-up of [facility] lesion [facility]
[2018-04-19] MEDS: Insulin NovoLOG Aspart Correctional Sugar Inj SQ SCH ×4 (09:27→20:24)
--- NOTE | 2018-04-19 13:56 | ECHRPT ---
Indication: cva CONCLUSIONS BP: / HR: Rhythm: MEASUREMENTS (Male / Female) Normal Values Technical Quality: 2D ECHO LV Diastolic Diameter PLAX 4.2 cm 4.2 - 5.9 / 3.9 - 5.3 cm LV Systolic Diameter PLAX 3.4 cm IVS Diastolic Thickness 1.3 cm 0.6 - 1.0 / 0.6 - 0.9 cm LVPW Diastolic Thickness 1.0 cm 0.6 - 1.0 / 0.6 - 0.9 cm LV Relative Wall Thickness 0.5 RV Internal Dim ED PLAX 2.7 cm Aortic Root Diameter 2.6 cm LA Systolic Diameter LX 2.9 cm 3.0 - 4.0 / 2.7 - 3.8 cm LV Ejection Fraction MOD BP 55.7 % >= 55 % LV Ejection Fraction MOD 4C 60.0 % LV Ejection Fraction 4C AL 63.0 % LV Ejection Fraction MOD 2C 57.3 % LV Ejection Fraction 2C AL 62.4 % M-MODE Aortic Root Diameter MM 3.1 cm LA Systolic Diameter MM 3.4 cm LA Ao Ratio MM 1.1 AV Cusp Separation MM 1.9 cm DOPPLER AV Peak Velocity 138.0 cm/s AV Peak Gradient 7.6 mmHg LVOT Peak Velocity 80.0 cm/s LVOT Peak Gradient 2.6 mmHg Mitral E Point Velocity 74.0 cm/s Mitral A Point Velocity 95.3 cm/s Mitral E to A Ratio 0.8 LV E' Lateral Velocity 7.0 cm/s Mitral E to LV E' Lateral Ratio 10.5 LV E' Septal Velocity 6.2 cm/s Mitral E to LV E' Septal Ratio 11.9 TR Peak Velocity 149.0 cm/s TR Peak Gradient 8.9 mmHg Right Atrial Pressure 10.0 mmHg Pulmonary Artery Systolic Pressu 18.9 mmHg Right Ventricular Systolic Press 18.9 mmHg PV Peak Velocity 104.0 cm/s PV Peak Gradient 4.3 mmHg FINDINGS LEFT VENTRICLE Normal left ventricular size. Mild concentric left ventricular hypertrophy or upper normal LV thickness. The left ventricular systolic function is normal with an estimated ejection fraction in the range of 55-60%. RIGHT VENTRICLE Normal right ventricular size and systolic function. LEFT ATRIUM The left atrial size is normal. RIGHT ATRIUM The right atrial size is normal. AORTA The aortic root and proximal ascending aorta are normal in size on limited imaging. MITRAL VALVE Trace mitral valve regurgitation. Mild mitral annular thickening. AORTIC VALVE Trileaflet aortic valve. No aortic valve stenosis or regurgitation. Possible mild calcification of t he aortic root. TRICUSPID VALVE The estimated pulmonary arterial pressure is 18. mmHg. There is trace tricuspid valve regurgitation. PULMONARY VALVE No pulmonary valve regurgitation or stenosis. VESSELS The inferior vena cava is normal in size. PERICARDIUM No pericardial effusion. Hayden Macias MD (Electronically Signed) Final Date:19 April 2018 13:56
--- NOTE | 2018-04-19 15:11 | MB ---
cc: Hayden Macias MD DATE: 04/19/2018 REASON FOR CONSULTATION: Evaluation of FILI for TIA. HISTORY OF PRESENT ILLNESS: This is a 62-year-old woman with multiple cardiac risk factors. She has hypertension, diabetes, hyperlipidemia, and smoked for 30 years, 1-1/2 to 2 packs per day. Two days ago, she had right facial numbness and right arm weakness, which lasted until yesterday. MRI was negative. Suspected to be a TIA. She was not on aspirin prior to the event. She has had occasional isolated flip flops, but nothing in a long time. No symptoms I could construe as atrial fibrillation. She had no chest pain. She has shortness of breath with activity. She has a brother who has had a stroke. PAST MEDICAL HISTORY: Includes diabetes, acid reflux, hyperlipidemia, hypertension, restless leg syndrome. SOCIAL HISTORY: Smoked for 30 years, about a 1-1/2 to 2 packs a day, but quit 15 years ago. PAST SURGICAL HISTORY: Includes decompression of left shoulder rotator, cuff repair right shoulder, left wrist carpal tunnel release, left total knee replacement. ALLERGIES: CODEINE. FAMILY HISTORY: Father had diabetes. Mother leukemia. Her brother had a stroke. REVIEW OF SYSTEMS: Otherwise negative. PHYSICAL EXAMINATION: GENERAL: Well-developed, well-nourished white female, in no acute distress. VITAL SIGNS: Charted. HEENT: Unremarkable. NECK: No JVD. No bruits. CHEST: Clear to auscultation. CARDIOVASCULAR: Normal S1, S2. Regular rate and rhythm. No murmurs or gallops appreciated. ABDOMEN: Soft, nontender. No masses or organomegaly. EXTREMITIES: No clubbing, cyanosis or edema. Peripheral pulses are intact. DIAGNOSTIC STUDIES: EKG shows sinus rhythm with mildly low precordial lead voltage. Remaining labs and x-ray studies are charted. IMPRESSION: Transient ischemic attack, etiology unclear, definitely has multiple risk factors for atherosclerosis. She was not on aspirin. RECOMMENDATIONS: Agree with initiation of aspirin. I am going to get her FILI set up for tomorrow. She does not have any swallowing difficulty. She is able to tolerate the procedure. I will probably recommend an event monitor after discharge, although she does not really have anything specific signs of atrial fibrillation that I can detect at this time. MD EDVIN Kingston/vlad , 02:48 PM , 02:56 PM
--- NOTE | 2018-04-19 20:18 | MB ---
cc: Jovan Silverio MD DATE: 04/19/2018 CONSULTING PHYSICIAN: Chai Keller MD REASON FOR CONSULTATION: Hematology consulted to render opinion on patient with transient ischemic attack and family history of thrombosis. HISTORY OF PRESENT ILLNESS: The patient is a very pleasant 62-year-old female who presented to the hospital with a right facial weakness and numbness. She also had mild slurred speech. She had transient right arm weakness over the last half a day. Workup did not show any acute changes and she possibly has a transient ischemic attack. Her symptom have improved. She stated her brother had a stroke in his 60s. Another brother had a deep venous thrombosis. Her father had a car accident and she believed that he of some sort of blood clot. The patient personally has no history of other thromboembolic event. She denies any chest pain or shortness of breath. She has a chronic cough, which is nonproductive. Denies any nausea, vomiting, abdominal pain, dysuria, hematuria. PAST MEDICAL HISTORY: Hypertension, hyperlipidemia, diabetes mellitus, gastroesophageal reflux disease, restless leg syndrome, chronic cough. PAST SURGICAL HISTORY: 1. Left rotator cuff surgery. 2. Left carpal tunnel release. 3. Left knee replacement. 4. Hysterectomy. FAMILY HISTORY: Has a blood clot as above. One brother also had multiple myeloma. She has 4 children, all healthy. SOCIAL HISTORY: Smoked 1-2 pack a day for about 30 years, quit about 15 years ago. Denies any alcohol use. ALLERGIES: CODEINE. MEDICATIONS: 1. Aspirin. 2. Lovenox. 3. Protonix. 4. Prevacid. 5. Requip. REVIEW OF SYSTEMS: CONSTITUTIONAL: Negative. EYES: Negative. ENT: Negative. CARDIOVASCULAR: No chest pressure or palpitation. RESPIRATORY: Denies shortness of breath or cough. GASTROINTESTINAL: Negative. GENITOURINARY: Negative. MUSCULOSKELETAL: As above. ENDOCRINE: Negative. HEMATOLOGY: As above. NEUROLOGIC: As above. PSYCHIATRIC: Negative. DERMATOLOGY: Negative. PHYSICAL EXAMINATION: VITAL SIGNS: Temperature 98.4, blood pressure 129/69, O2 saturation 96%. GENERAL: She is alert, oriented x 3, in no acute distress. HEENT: Atraumatic, normocephalic. Pupils are equal, round, reactive. Oropharynx dry mucosa. No lesion. NECK: No thyromegaly. No palpable mass. LYMPHATIC: No palpable cervical, clavicular, axillary, or inguinal lymph nodes. HEART: Regular S1, S2. No murmur. LUNGS: Clear to auscultation. No wheezing or rhonchi. ABDOMEN: Soft, nontender. Cannot palpate liver or spleen. EXTREMITIES: No cyanosis, clubbing, or edema. BACK: No pelvic pain. SKIN: No rash. NEUROLOGIC: Mild right facial droop. LABORATORY DATA: Lab work during this hospital stay. ASSESSMENT: 1. Transient ischemic attack versus small stroke. CT and MRI did not show significant acute changes. Her symptoms have almost completely resolved. The patient has no personal history of thrombosis in the past. She has a brother with deep venous thrombosis. She has another brother who had a stroke in his 60s. The patient's father reportedly of blood clot. Given a family history, I think hypercoagulable workup is indicated. I explained the workup to the patient and her . She agreed to proceed. I told her the results will take more than a week to complete. She can follow up with hematology or primary physician for the results. They had some questions, which were answered. 2. Chronic cough. She will follow up with her primary physician. 3. Hypertension. 4. Hyperlipidemia. 5. Diabetes mellitus. 6. Gastroesophageal reflux disease. PLAN: 1. Proceed with hypercoagulable workup. 2. The patient can follow up with primary physician or Hematology for the results. Thank you, Dr. Keller, for asking me to see this patient. MD NATAILA Mathew/clau , 06:23 PM , 06:34 PM
[2018-04-19] MEDS: Enoxaparin Inj 40 MG/0.4 ML Syringe SQ SCH (20:23)
--- NOTE | 2018-04-20 08:28 | P.PNNEU ---
Subjective Subjective Comments: No cp, no dyspnea, no merino, no focal weakness, no vision loss, complains of right ear pain Active Medications: Active Medications Aspirin (Aspirin Chew) 81 mg PO DAILY [facility] Last Admin: 04/19/18 08:53 Dose: 81 mg Dextrose (D50w Vial) 50 ml IV.PUSH UNSCH PRN PRN Reason: PER HYPOGLYCEMIA PROTOCOL Enalaprilat (Vasotec Inj) 1.25 mg IV.PUSH Q4H PRN PRN Reason: For SBP > 220 or DBP > 120 Enoxaparin Sodium (Lovenox Inj) 40 mg SQ Q24H [facility] Last Admin: 04/19/18 20:23 Dose: 40 mg Glucagon (Glucagon Inj) 1 mg OTHER UNSCH PRN PRN Reason: for Hypoglycemia Protocol Insulin Aspart (Novolog Insulin Correctional Sugar Inj) 0 unit SQ ACHS [facility]; Protocol Last Admin: 04/19/18 20:24 Dose: 3 unit Pantoprazole Sodium (Protonix) 40 mg PO DAILY [facility] Last Admin: 04/19/18 08:53 Dose: 40 mg Pravastatin Sodium (Pravachol) 10 mg PO DAILY [facility] Last Admin: 04/19/18 08:53 Dose: 10 mg Ropinirole HCl (Requip) 1 mg PO TID [facility] Last Admin: 04/19/18 18:12 Dose: 1 mg Sodium Chloride (Ns Flush) 2 ml IV.FLUSH PRN PRN PRN Reason: FLUSH AFTER USING IV ACCESS Sodium Chloride (Ns Flush) 2 ml IV.FLUSH BID [facility] Last Admin: 04/19/18 20:28 Dose: 2 ml Allergies/Adverse Reactions: Allergies Allergy/AdvReac Type Severity Reaction Status Date / Time codeine Allergy Unknown Nausea/Vomi Verified 04/19/18 07:17 ting Review of Systems All other systems reviewed negative except as stated in HPI Physical Exam Vital signs: Vital Signs 04/19/18 09:00 04/19/18 11:50 04/19/18 16:00 Temperature 98.6 F 98.4 F Pulse Rate 92 H 88 90 Respiratory Rate 17 18 Blood Pressure 133/63 129/69 Pulse Oximetry 98 96 04/19/18 17:56 04/19/18 19:54 04/20/18 00:00 Temperature 99.0 F 98.8 F Pulse Rate 88 89 89 Respiratory Rate 17 14 Blood Pressure 131/68 120/61 Pulse Oximetry 94 L 94 L 04/20/18 03:51 04/20/18 08:00 Temperature 98.2 F 98.6 F Pulse Rate 90 84 Respiratory Rate 14 16 Blood Pressure 126/67 134/77 Pulse Oximetry 95 92 L Intake & Output 04/19/18 04/20/18 04/20/18 18:59 06:59 18:59 Intake Total 480 / 480 Balance 480 / 480 Weight 77.5 kg Intake: Oral 480 / 480 Other: # Voids 4 Date of Last Bowel Movement 04/18/18 04/18/18 Narrative: GENERAL: in NAD, SKIN: Warm and dry. HEAD: Atraumatic. Normocephalic. EYES: Pupils equal and round. No scleral icterus. ENT: No nasal bleeding or discharge. Mucous membranes pink and moist. NECK: Trachea midline. No JVD. No obvious lymphadenopathy CARDIOVASCULAR: Regular rate and rhythm. RESPIRATORY: No accessory muscle use. GASTROINTESTINAL: Abdomen soft, non-tender, nondistended. MUSCULOSKELETAL: Extremities without clubbing, cyanosis, or edema. No obvious deformities. NEUROLOGICAL: Awake and alert. Oriented x3, speech is clear, reduced right nasolabial fold, slightly slower right blink very minimal weakness right frontalis asymmetric smile visual duckworth full, no pronator drift PSYCHIATRIC: Appropriate mood and affect; insight and judgment normal. - Constitutional no acute distress - Routine HEENT Exam Head: Present: normocephalic Eye: Present: EOMI Objective Laboratory Results - last 24 hr 04/19/18 04/19/18 04/19/18 06:40 08:50 12:18 POC Glucose 212 H 211 H Hemoglobin A1c 10.0 H 04/19/18 04/19/18 18:03 20:08 POC Glucose 194 H 227 H Hemoglobin A1c Review/Management - Diagnosis (1) TIA (transient ischemic attack) Code(s): G45.9 - Transient cerebral ischemic attack, unspecified Status: Acute Current Visit: Yes (2) Hypertension Code(s): I10 - Essential (primary) hypertension Status: Acute Current Visit : Yes - Review/Management Plan: Probable resolving TIA, tiny infarct MRI brain scan reviewed no acute infarct noted low slightly reduced right nasolabial fold. Ramirez's palsy possibility however symptoms affecting the right arm and leg would make that less likely Right hemisensory symptoms resolved. Still with mild right facial weakness which appears to be more peripheral in origin; in addition patient complaining of right ear discomfort Recommendation Medical to further evaluate right ear; may require ENT evaluation in versus outpatient. Will order CT skull base sinuses Start prednisone 60 mg p.o. daily times 7 days and Valtrex HbA1c 10; uncontrolled diabetes ? Right mid neck lymph node noted on carotid ultrasound; further evaluation per medical may require biopsy. Oncology also seeing patient Aspirin Blood pressure control FILI this morning; appreciate cardiology evaluation Hematology evaluation to exclude hypercoagulable state in light of her brother having a stroke at a young age Cardiology evaluation exclude any valvular cardiac lesion Further follow-up of [facility] lesion [facility] Behavioral modification and risk factor reduction. Weight loss, blood pressure control, blood sugar control, lipid control. Exercise
--- NOTE | 2018-04-20 08:53 | P.PNONC ---
Subjective Interval history: Facial numbness has resolved. She still has mild right-sided facial droop. She denies any weakness of her extremities. Objective Vital Signs/Intake & Output: Vital Signs 04/19/18 09:00 04/19/18 11:50 04/19/18 16:00 Temperature 98.6 F 98.4 F Pulse Rate 92 H 88 90 Respiratory Rate 17 18 Blood Pressure 133/63 129/69 Pulse Oximetry 98 96 04/19/18 17:56 04/19/18 19:54 04/20/18 00:00 Temperature 99.0 F 98.8 F Pulse Rate 88 89 89 Respiratory Rate 17 14 Blood Pressure 131/68 120/61 Pulse Oximetry 94 L 94 L 04/20/18 03:51 04/20/18 08:00 Temperature 98.2 F 98.6 F Pulse Rate 90 84 Respiratory Rate 14 16 Blood Pressure 126/67 134/77 Pulse Oximetry 95 92 L Intake & Output 04/19/18 04/20/18 04/20/18 18:59 06:59 18:59 Intake Total 480 / 480 Balance 480 / 480 Weight 77.5 kg Intake: Oral 480 / 480 Other: # Voids 4 Date of Last Bowel Movement 04/18/18 04/18/18 Result Diagrams: 04/18/18 19:35 04/18/18 19:35 Laboratory Results: Laboratory Results - last 24 hr 04/19/18 04/19/18 04/19/18 06:40 08:50 12:18 POC Glucose 212 H 211 H Hemoglobin A1c 10.0 H 04/19/18 04/19/18 18:03 20:08 POC Glucose 194 H 227 H Hemoglobin A1c Medications: Active Medications Generic Name Dose Route Start Last Admin Trade Name Eliezerq PRN Reason Stop Dose Admin Aspirin 81 mg 04/19/18 09:00 04/19/18 08:53 Aspirin Chew PO 81 mg DAILY THONY Administration Enoxaparin Sodium 40 mg 04/18/18 21:15 04/19/18 20:23 Lovenox Inj SQ 40 mg Q24H THONY Administration Insulin Aspart 0 unit 04/19/18 08:00 04/19/18 20:24 Novolog Insulin Correctional Sugar Inj SQ 3 unit ACHS THONY Administration Protocol Pantoprazole Sodium 40 mg 04/19/18 09:00 04/19/18 08:53 Protonix PO 40 mg DAILY THONY Administration Pravastatin Sodium 10 mg 04/19/18 09:00 04/19/18 08:53 Pravachol PO 10 mg DAILY THONY Administration Ropinirole HCl 1 mg 04/19/18 09:00 04/19/18 18:12 Requip PO 1 mg TID THONY Administration Sodium Chloride 2 ml 04/19/18 09:00 04/19/18 20:28 Ns Flush IV.FLUSH 2 ml BID THONY Administration Objective Remarks: GENERAL: Well-nourished, well-developed patient. SKIN: Warm and dry. HEAD: Normocephalic. Mild right-sided facial droop. EYES: No scleral icterus. No injection or drainage. NECK: Supple, trachea midline. No JVD or lymphadenopathy. LYMPHATIC: No adenopathy. CARDIOVASCULAR: Regular rate and rhythm without murmurs. RESPIRATORY: Breath sounds equal bilaterally. No accessory muscle use. GASTROINTESTINAL: Abdomen soft, non-tender, nondistended. EXTREMITIES: No cyanosis, or edema. MUSCULOSKELETAL: Adequate muscle tone. NEUROLOGICAL: Awake, alert, and oriented x3. Mild right-sided facial droop. PSYCHIATRIC: Appropriate mood and affect; insight and judgment normal. Assessment/Plan - Plan 1. Transient ischemic attack versus small stroke. CT and MRI did not show significant acute changes. Her symptoms have almost completely resolved. The patient has no personal history of thrombosis in the past. She has a brother with deep venous thrombosis. She has another brother who had a stroke in his 60s. The patient's father reportedly of blood clot. Given a family history, I think hypercoagulable workup is indicated. April 20 hypercoagulable panel has been drawn this morning She can follow up with hematology or primary physician for the results. 2. Chronic cough. She will follow up with her primary physician. 3. Hypertension. 4. Hyperlipidemia. 5. Diabetes mellitus. 6. Gastroesophageal reflux disease. PLAN: 1. Hypercoagulable workup pending. 2. The patient can follow up with primary physician or Hematology for the results.
[2018-04-20] MEDS ORDERED: predniSONE 20 MG Tablet PO SCH (09:00)
[2018-04-20] MEDS: Insulin NovoLOG Aspart Correctional Sugar Inj SQ SCH ×4 (09:47→18:58)
[2018-04-20] MEDS ORDERED: valACYclovir 500 MG Tab PO SCH (10:00)
[2018-04-20 14:13] VITALS: RESP 20
--- NOTE | 2018-04-20 15:06 | P.PNIM ---
Subjective Interval history: Patient reports she is feeling okay today. No new neurological symptoms. She complains of right-sided jaw and neck discomfort. Still has right facial droop. Physical Exam Vital signs: Vital Signs 04/19/18 16:00 04/19/18 17:56 04/19/18 19:54 Temperature 98.4 F 99.0 F Pulse Rate 90 88 89 Respiratory Rate 18 17 Blood Pressure 129/69 131/68 Pulse Oximetry 96 94 L 04/20/18 00:00 04/20/18 03:51 04/20/18 08:00 Temperature 98.8 F 98.2 F 98.6 F Pulse Rate 89 90 84 Respiratory Rate 14 14 16 Blood Pressure 120/61 126/67 134/77 Pulse Oximetry 94 L 95 92 L 04/20/18 09:00 04/20/18 12:00 Temperature 98.1 F Pulse Rate 87 86 Respiratory Rate 20 Blood Pressure 130/72 Pulse Oximetry 95 Intake & Output 04/19/18 04/20/18 04/20/18 18:59 06:59 18:59 Intake Total 480 / 480 Balance 480 / 480 Weight 77.5 kg Intake: Oral 480 / 480 Other: # Voids 4 Date of Last Bowel Movement 04/18/18 04/18/18 04/18/18 Narrative: GENERAL: This is a well-nourished, well-developed patient, in no apparent distress. HEENT: External hear canal appear normal. TM visualized and is completely normal. No signs of effusion or infection. Hearing equal and normal. CARDIOVASCULAR: Normal rate and regular rhythm without murmurs, gallops, or rubs. RESPIRATORY: Good respiratory efforts. Breath sounds equal and clear to auscultation bilaterally. GASTROINTESTINAL: Abdomen soft, non-tender, non-distended. Normal active bowel sounds MUSCULOSKELETAL: Extremities without cyanosis, or edema. NEURO: Alert & Oriented x4 to person, place, time, situation. Moves all ext x4. Mild right facial droop. PSYCH: Appropriate mood and affect. Results - Labs CBC & Chem 7: 04/18/18 19:35 04/18/18 19:35 Laboratory Results - last 24 hr 04/19/18 04/19/18 04/19/18 06:40 18:03 20:08 POC Glucose 194 H 227 H Hemoglobin A1c 10.0 H 04/20/18 04/20/18 08:47 11:34 POC Glucose 208 H 182 H Hemoglobin A1c Assessment and Plan - Plan 62-year-old female with: Acute onset right facial numbness/weakness: Possible resolving TIA. Ramirez's palsy is also a possibility. Improving. -Appreciate neurology input. MRI of the brain is negative for acute stroke. -Per neurology recommendations continue prednisone 60 mg daily for 7 days and Valtrex. -A CT of the skull base/sinuses has been ordered per neurology. If negative will discharge the patient home to follow-up outpatient - Appreciated hematology evaluation. Hypercoagulable workup started. Patient to follow-up with PCP or hematology outpatient to review results. -Continue aspirin Diabetes mellitus. Glucose elevated in the 260s on admission. Hemoglobin A1c of 10. Patient reports her PCP recently adjusted her diabetes medications. -Discussed need to be compliant with a diabetic diet. Advise close follow-up with PCP. She understands the need to check her blood glucose as home as it is expected to increase with steroid use. GERD. Chronic. Continue home medications Hyperlipidemia. Chronic. Continue home medication. History of hypertension. Chronic. Permissive hypertension for now as above. Restless legs. Chronic. Continue home medications. Discharge Planning: Awaiting skull/sinus CT results. Plan to discharge home if negative. Discharge patient to home Condition on discharge: Improved Regular Diet as tolerated Ad Ansley activity Rx written: Per med rec Follow-up with primary care physician
[2018-04-20 15:58] VITALS: BP 155/74; PULSE 98; TEMP 98.9; O2SAT 94
--- NOTE | 2018-04-20 17:11 | CT ---
EXAM DATE: 04/20/2018 4:59 PM EST AGE/SEX: 62 years / Female INDICATIONS: Right ear pain. CLINICAL DATA: This is the patient's initial encounter. Patient reports that signs and symptoms have been present for 1 day and indicates a pain score of 7/10. MEDICAL/SURGICAL HISTORY: Stroke. Hypertension. Diabetes. None. RADIATION DOSE: 9.93 CTDI (mGy) COMPARISON: [facility] [place], CT HEAD W/O CONTRAST, 04/18/2018. . TECHNIQUE: Contiguous axial thin-section CT images of the paranasal sinuses were performed. Using au tomated exposure control and adjustment of the mA and/or kV according to patient size, radiation dose was kept as low as reasonably achievable to obtain optimal diagnostic quality images. DICOM format image data is available electronically for review and comparison. FINDINGS: Frontal Sinuses: No evidence of mucoperiosteal thickening or air-fluid level. Nasal Cavity: The septum is midline. The turbinates are intact. Olfactory Recesses: Symmetric and normal depth. Maxillary Sinuses: No evidence of mucoperiosteal thickening or air-fluid level. Outflow Tract: The ostiomeatal outflow tracts are symmetric and patent. Ethmoid Sinuses: No evidence of mucoperiosteal thickening or air-fluid level. Sphenoid Sinuses: No evidence of mucoperiosteal thickening or air-fluid level. Other: The nasofrontal ducts are patent. The sphenoethmoidal recesses are patent. CONCLUSION: 1. Negative CT Paranasal Sinuses non contrast. 2. No evidence of acute or chronic sinusitis. 3. No evidence of outflow tract obstructive disease. Electronically signed by: Nithin Jain MD 04/20/2018 5:10 PM EST
--- NOTE | 2018-04-21 09:13 | HM ---
Date Performed: 04/19/2018 Time Performed: 17:32:00 HOOKUP DATE: 04/19/18 05:32:00 PM Tue ANALYSIS START TIME: 04/19/2018 5:37:00 PM ANALYSIS END TIME: 04/20/2018 6:03:50 AM PATIENT AGE: 62 PATIENT HEIGHT PATIENT WEIGHT DRUG LIST PATIENT DIAGNOSIS: PT STATES POSS NEURO TEST NARRATIVE: The patient's average heart rate was 90 BPM. Heart rates greater than 120 B PM were noted 5% of the time. No episodes of bradycardia were noted. No pauses exceeding 2.0 sec onds were noted. 2 ventricular ectopics, which represented < 1% of the total beat count, were not ed. The highest ventricular ectopic frequency occurred from 12:00 AM to 01:00 AM Wed. During this t bebe 1 VE(s) occurred. Ventricular ectopics were observed as 2 isolated beat(s) only. No couplets or runs were noted. No supraventricular ectopics were noted. No episodes of ST depression (defi armand as -1.0 mm or more) were noted in channel 1. No episodes of ST depression (defined as -1.0 mm or more) were noted in channel 2. No episodes of ST depression (defined as -1.0 mm or more) were noted in channel 3. TEST INTERPRETATION: Normal Sinus rhythm . Rare PVCs. Signed by : Meir becerra
[2018-04-22 15:51] LABS: Dil Russell Viper Venom Conf ( ND (NEGATIVE); Dil Russell Viper Venom Time M ND (CORRECTED); Lupus Anticoagulant PTT Screen 31 seconds (< OR = 40)
[2018-04-22 19:09] LABS: Factor V Leiden Mutation Negative (Negative)
== END 2018-04-20 19:24 | disposition home or self-care (01) ==
LOC: NEPE 18:19 → NEDA 21:30 → NEPFCDU 23:27
PROVIDERS: ADMIT Family Medicine; ATTEND Family Medicine